=== PATIENT | female | born 1945 | race Caucasian/White ===

== ENCOUNTER 2024-10-19 10:00 | Outpatient (CLI) | payer MEDICARE | END 2024-10-19 10:01 | disposition home or self-care (01) | LOC: SCSRAD 10:00 | PROVIDERS: ATTEND Orthopaedic Surgery | DX: M54.50 Low back pain, unspecified (principal); M41.9 Scoliosis, unspecified; Z98.1 Arthrodesis status | CPT/HCPCS: 72100 ==